=== PATIENT | female | born 1955 | race Caucasian/White ===

== ENCOUNTER 2016-11-13 13:30 | Outpatient (CLI) | payer OTHER | END 2016-11-13 20:53 | disposition home or self-care (01) | LOC: SMA 13:30 | PROVIDERS: ATTEND Family Medicine | DX: Z12.31 Encounter for screening mammogram for malignant neoplasm of breast (principal) | CPT/HCPCS: G0202 ==

== ENCOUNTER 2017-12-20 09:15 | Outpatient (CLI) | payer OTHER | END 2017-12-20 19:05 | disposition home or self-care (01) | LOC: SRD 09:15 | DX: Z12.31 Encounter for screening mammogram for malignant neoplasm of breast (principal); M23.8X2 Other internal derangements of left knee | CPT/HCPCS: 73564; 77067 ==

== ENCOUNTER 2018-04-02 11:34 | Outpatient (CLI) | payer OTHER | END 2018-04-02 18:54 | disposition home or self-care (01) | LOC: SRD 11:34 | DX: M16.12 Unilateral primary osteoarthritis, left hip (principal); M47.896 Other spondylosis, lumbar region; M41.86 Other forms of scoliosis, lumbar region | CPT/HCPCS: 72110; 72170-TC; 73502 ==

== ENCOUNTER 2018-07-28 10:47 | Outpatient (CLI) | payer OTHER | END 2018-07-28 21:13 | disposition home or self-care (01) | LOC: SRD 10:47 | DX: S33.8XXA Sprain of other parts of lumbar spine and pelvis, initial encounter (principal); M47.816 Spondylosis without myelopathy or radiculopathy, lumbar region; M41.86 Other forms of scoliosis, lumbar region; M48.061 Spinal stenosis, lumbar region without neurogenic claudication; M53.3 Sacrococcygeal disorders, not elsewhere classified; M47.818 Spondylosis without myelopathy or radiculopathy, sacral and sacrococcygeal region; X58.XXXA Exposure to other specified factors, initial encounter; Y93.89 Activity, other specified; Y92.89 Other specified places as the place of occurrence of the external cause; Y99.8 Other external cause status | CPT/HCPCS: 72100-TC; 72220-TC ==

== ENCOUNTER 2019-08-18 16:16 | Outpatient (CLI) | payer BC | END 2019-08-18 19:02 | disposition home or self-care (01) | LOC: SMA 16:16 | PROVIDERS: ATTEND Family Medicine | DX: Z12.31 Encounter for screening mammogram for malignant neoplasm of breast (principal) | CPT/HCPCS: 77067 ==

== ENCOUNTER 2020-12-02 11:55 | Outpatient (CLI) | payer BC | END 2020-12-02 20:40 | disposition home or self-care (01) | LOC: SMA 11:55 | PROVIDERS: ATTEND Family Medicine | DX: Z12.31 Encounter for screening mammogram for malignant neoplasm of breast (principal) | CPT/HCPCS: 77067 ==

== ENCOUNTER 2022-01-27 14:30 | Outpatient (CLI) | payer BC | END 2022-01-27 20:39 | disposition home or self-care (01) | LOC: SRD 14:30 | PROVIDERS: ATTEND Nurse Practitioner Family | DX: M19.071 Primary osteoarthritis, right ankle and foot (principal); M19.072 Primary osteoarthritis, left ankle and foot; M21.072 Valgus deformity, not elsewhere classified, left ankle; M21.071 Valgus deformity, not elsewhere classified, right ankle ==

== ENCOUNTER 2022-02-08 10:35 | Outpatient (CLI) | payer BC | END 2022-02-08 19:47 | disposition home or self-care (01) | LOC: SMA 10:35 | PROVIDERS: ATTEND Nurse Practitioner Family | DX: Z12.31 Encounter for screening mammogram for malignant neoplasm of breast (principal) | CPT/HCPCS: 77067 ==

== ENCOUNTER 2023-08-09 14:14 | Outpatient (CLI) | payer BC | END 2023-08-09 20:26 | disposition home or self-care (01) | LOC: SMA 14:14 | PROVIDERS: ATTEND Nurse Practitioner Family | DX: Z12.31 Encounter for screening mammogram for malignant neoplasm of breast (principal) | CPT/HCPCS: 77067 ==